=== PATIENT | female | born 2005 | race African-American/Black ===

== ENCOUNTER 2025-06-18 08:57 | Inpatient (IN) | payer SELFPAY ==
[~2025-06-18] VITALS: Ht 167.6 cm; Wt 54.4 kg
[2025-06-18 09:00] VITALS: O2SAT 100
[2025-06-18] MEDS: LEVETIRACETAM 500MG PREMIX 100 ML IV ONE ×2 (09:41→09:42)
[2025-06-18] MEDS: TETANUS, DIPHTHERIA, PERTUSSIS VAC/PF 0.5ML (>10YR OLD) IM ONE (09:43)
[2025-06-18] MEDS: LACTATED RINGERS 1,000 ML IV SCH (09:43)
[2025-06-18 09:56] LABS: BASOPHILS % 0.3 % (0.0-2.0); EOSINOPHILS % 0.4 % (0.0-5.0); HEMATOCRIT. 40.0 % (36.0-48.0); HEMOGLOBIN. 13.7 g/dL (12.0-16.0); LYMPHOCYTES % 14.3 % (20.0-50.0); MEAN PLATELET VOLUME 10.8 fl (7.4-10.4); MONOCYTES % 6.3 % (2.0-8.0); NEUTROPHILS % 78.7 % (40.0-76.0); PLATELET 248 x1000/uL (130-400); RED BLOOD CELL COUNT 4.44 mill/uL (4.2-5.4); RED CELL DISTRIBUTION WIDTH 13.0 % (11.6-14.6)
[2025-06-18 10:11] LABS: CREATININE 0.5 mg/dL (0.6-1.0); UREA NITROGEN BLOOD 6 mg/dL (9-23)
[2025-06-18 10:12] LABS: ASPARTATE AMINOTRANSFERASE 21 IU/L (<34)
[2025-06-18 10:13] LABS: BILIRUBIN TOTAL 0.6 mg/dL (0.1-1.0); HCG SCREEN NEGATIVE; PROTEIN TOTAL 7.2 g/dL (6.0-8.3)
[2025-06-18] MEDS ORDERED: ONDANSETRON HCL 4MG/2ML INJ IV PRN (12:15)
[2025-06-18] MEDS ORDERED: CLONIDINE 0.1MG TABLET PO PRN (12:15)
[2025-06-18] MEDS ORDERED: LEVETIRACETAM 500MG in NACL 100ML PREMIX IV SCH ×2 (12:15→21:00)
[2025-06-18] MEDS ORDERED: IPRATROPIUM/ALBUTEROL 0.5-3(2.5)MG/3ML NEB HHN PRN (12:15)
[2025-06-18] MEDS ORDERED: LORAZEPAM 1MG TABLET PO PRN (12:15)
[2025-06-18] MEDS ORDERED: DEXTROSE 50% WATER 50ML SYRINGE IV PRN (12:15)
[2025-06-18] MEDS ORDERED: ACETAMINOPHEN 325MG TABLET PO PRN ×2 (12:15)
[2025-06-18 14:41] LABS: *AMPHETAMINES SCREEN URINE NEGATIVE (NEGATIVE); *BARBITURATES SCREEN URINE NEGATIVE (NEGATIVE); *BENZODIAZEPINES SCREEN URINE NEGATIVE (NEGATIVE); *COCAINE SCREEN URINE NEGATIVE (NEGATIVE); CANNABINOID URINE SCREEN NEGATIVE (NEGATIVE); ECSTASY MDMA SCREEN URINE NEGATIVE (NEGATIVE); METHADONE URINE SCREEN NEGATIVE (NEGATIVE); OPIATES URINE SCREEN NEGATIVE (NEGATIVE); PHENCYCLIDINE URINE SCREEN NEGATIVE (NEGATIVE)
[2025-06-18 20:00] VITALS: BP 103/46; PULSE 92; RESP 18; TEMP 36.4; TEMP 36.4736; O2SAT 98
[2025-06-18] MEDS: OLANZAPINE 5MG TABLET ODT PO SCH (22:12)
[2025-06-18] MEDS: SODIUM CHLORIDE 0.9% 1,000 ML IV SCH (22:32)
[2025-06-18] MEDS: LEVETIRACETAM 500MG PREMIX 100 ML IV SCH (22:32)
[2025-06-18] MEDS: BLOOD SUGAR DIAGNOSTIC STRIP TEST SCH (22:35)
[2025-06-19] VITALS: PULSE 86
[2025-06-19 04:00] VITALS: BP 109/63; PULSE 82; RESP 18; TEMP 36.2; O2SAT 99
[2025-06-19 07:42] LABS: BASOPHILS % 0.3 % (0.0-2.0); EOSINOPHILS % 1.2 % (0.0-5.0); HEMATOCRIT. 38.0 % (36.0-48.0); HEMOGLOBIN. 13.0 g/dL (12.0-16.0); LYMPHOCYTES % 25.2 % (20.0-50.0); MEAN PLATELET VOLUME 10.9 fl (7.4-10.4); MONOCYTES % 10.3 % (2.0-8.0); NEUTROPHILS % 63.0 % (40.0-76.0); PLATELET 225 x1000/uL (130-400); RED BLOOD CELL COUNT 4.19 mill/uL (4.2-5.4); RED CELL DISTRIBUTION WIDTH 12.8 % (11.6-14.6)
[2025-06-19 08:00] VITALS: BP 120/75; PULSE 91; RESP 14; TEMP 36.5; O2SAT 99
[2025-06-19 08:06] LABS: CREATININE 0.6 mg/dL (0.6-1.0); TRIGLYCERIDE 69 mg/dL (0-150)
[2025-06-19 08:07] LABS: LDL CHOLESTEROL 76 mg/dL (5-100); UREA NITROGEN BLOOD 7 mg/dL (9-23)
[2025-06-19 08:08] LABS: ASPARTATE AMINOTRANSFERASE 16 IU/L (<34); BILIRUBIN DIRECT < 0.1 mg/dL (<=3.0)
[2025-06-19 08:09] LABS: BILIRUBIN TOTAL 0.4 mg/dL (0.1-1.0); PROTEIN TOTAL 6.7 g/dL (6.0-8.3); T4 FREE 1.22 ng/dL (0.89-1.76)
[2025-06-19 12:00] VITALS: BP 113/77; PULSE 88; RESP 19; TEMP 36.4; O2SAT 98
[2025-06-19] MEDS: LEVETIRACETAM 500MG PREMIX 100 ML IV SCH (12:17)
[2025-06-19 16:00] VITALS: BP 116/82; PULSE 84; RESP 18; TEMP 36.1; O2SAT 98
[2025-06-19 20:00] VITALS: BP 113/65; PULSE 80; RESP 18; TEMP 36.8; O2SAT 97
[2025-06-19] MEDS: MELATONIN 3MG TABLET PO PRN (20:32)
[2025-06-20] VITALS: BP 108/60; PULSE 78; RESP 17; TEMP 36.6; O2SAT 99
[2025-06-20 04:00] VITALS: BP 115/83; PULSE 82; RESP 18; TEMP 36.7; O2SAT 97
[2025-06-20 07:43] LABS: CREATININE 0.7 mg/dL (0.6-1.0); UREA NITROGEN BLOOD < 5 mg/dL (9-23)
[2025-06-20 08:00] VITALS: BP 115/61; PULSE 75; RESP 16; TEMP 37.1; O2SAT 99
[2025-06-20 12:00] VITALS: BP 110/57; PULSE 71; RESP 16; TEMP 36.7; O2SAT 99
[2025-06-20 16:00] VITALS: BP 110/59; PULSE 71; RESP 18; TEMP 36.6; O2SAT 99
[2025-06-20 18:00] VITALS: BP 115/53; PULSE 90; RESP 16; TEMP 98.1
== END 2025-06-20 19:15 | disposition home or self-care (01) | DRG 53 ==
LOC: ER 08:57 → 6WST 11:22 → EDBEDREQTM 11:24 → EDBEDREQ 11:24 → ENRESERV 14:10 → CANRESERV 14:10 → UNDODISIN 06-19 12:09
PROVIDERS: ADMIT Internal Medicine; ATTEND Internal Medicine
PROC: 4A00X4Z Measurement of Central Nervous Electrical Activity, External Approach (ICD-10-PCS; principal; 2025-06-20)
DX: G40.901 Epilepsy, unspecified, not intractable, with status epilepticus (principal); F31.9 Bipolar disorder, unspecified; F41.9 Anxiety disorder, unspecified; S01.81XA Laceration without foreign body of other part of head, initial encounter; X58.XXXA Exposure to other specified factors, initial encounter; Y93.89 Activity, other specified; Y92.89 Other specified places as the place of occurrence of the external cause; Y99.8 Other external cause status
CPT/HCPCS: 36415; 71045; 80048; 80053; 80061; 80076; 80305; 80307; 80320; 80329; 82550; 82962; 83036; 84439; 84443; 84703; 85025; 90715; 95816; 96365; 96372; 99285; A4606; J1953; J7030; G0480